=== PATIENT | female | born 1940 | race Caucasian/White ===

== ENCOUNTER 2024-02-24 12:26 | Emergency (ER) | payer MEDICARE, SELFPAY ==
--- NOTE | ~2024-02-24 | CT_ITS ---
EXAMINATION: CT brain wo con DATE: 02/24/2024 14:17 INDICATION: Dizziness. TECHNIQUE: Computed tomography (CT) of the head was performed without intravenous contrast. The mA wa s adjusted according to patient size. Iterative reconstruction technique was employed. The dose-lengt h product was 605.33 mGy-cm. COMPARISON: None FINDINGS: There are scattered areas of low attenuation in the cerebral white matter. There is no intr acranial hemorrhage, acute infarction, or abnormal intracranial mass lesion. The ventricles are nuha l in size. There are likely changes of ocular lens replacement surgeries. The paranasal sinuses are c lear. The mastoid air cells are normal. IMPRESSION: 1. Extensive nonspecific cerebral white matter disease, which likely represents chronic small vessel ischemic disease. Reviewed, dictated and finalized at location A.
--- NOTE | ~2024-02-24 | XR_ITS ---
EXAMINATION: XR chest 2V DATE: 02/24/2024 14:22 INDICATION: Chest discomfort. Hypertension. TECHNIQUE: Frontal and lateral views of the chest were obtained. COMPARISON: None. FINDINGS: There is no pneumonia, pleural effusion, or pneumothorax. The heart is normal. There is mil d chronic anterior wedging of multiple midthoracic vertebral bodies. IMPRESSION: 1. No acute cardiopulmonary disease. Reviewed, dictated and finalized at location A.
[2024-02-24 12:27] VITALS: BP 158/93; PULSE 97; RESP 18; TEMP 36.6; O2SAT 97
--- NOTE | 2024-02-24 13:55 | ECG_ITS ---
Test Date: 2024-02-24 14:03:47 Measurements Intervals [place] Rate: 88 P: 76 VA: 138 QRS: 55 QRSD: 84 T: 62 QT: 356 QTc: 432 Interpretive Statements SINUS RHYTHM POSSIBLE LEFT ATRIAL ENLARGEMENT [-0.1mV P WAVE IN V1/V2] No previous ECG available for comparison Electronically Signed On 02-24-2024 14:42:34 CDT by Ayaka Sandhu M.D.
[2024-02-24 14:00] VITALS: BP 188/79; PULSE 87; RESP 18; O2SAT 98
--- NOTE | 2024-02-24 14:03 | ED.RECABL ---
HPI - Recheck/Abnormal Lab/Rx General Chief Complaint: Recheck/Abnormal Lab/Rx Stated Complaint: high BP Time Seen by Provider: 02/24/24 14:00 Focused HPI: Mich is an 83-year-old female patient presenting to the ER today with complaints of high blood pressure, intermittent dizziness, blurry vision, headache, and tingling in her chest. Was sent here from Dr. Cavanaugh is office. Dr. Cavanaugh is office reported that her blood pressures have been systolic 240s over diastolic 110s. She takes lisinopril metoprolol. Dr. Sahu was concern for hypertension urgency/emergency. General: Well-developed, well nourished, in no apparent distress, wears glasses Head: Normocephalic, atraumatic. Cardio: Regular rate and rhythm, s1 and s2 normal, no murmur appreciated. Resp: Clear to auscultation bilaterally, no rhonchi, rales, wheezing or rubs. Extremities: No deformity, no edema, no cyanosis, capillary refill less than 2 seconds, peripheral pulses palpable and strong. Integumentary: [place], warm, and dry, intact without lesion, no rashes. Patient screened in triage and initial orders placed. Additional care and disposition to be based upon diagnostic testing and treatment. Source: patient Mode of arrival: ambulatory Limitations: no limitations Related Data Home Medications Medication Instructions Recorded Confirmed lisinopril 20 mg tablet 20 mg PO BID 02/24/24 02/24/24 metoprolol succinate 25 mg 25 mg PO DAILY 02/24/24 02/24/24 tablet,extended release 24 hr Allergies Allergy/AdvReac Type Severity Reaction Status Date / Time No Known Allergies Allergy Verified 02/24/24 14:00 [facility], [facility] Past Medical History Medical History GERD (gastroesophageal reflux disease) HTN (hypertension), benign Family History Family History Mother Cancer Depression Heart valve problem Cerebrovascular accident Thyroid disorder Father Heart problem Sibling Alcoholism Social History Social History Social History: caffeine -coffee Tobacco type: cigarettes Alcohol use details: occasionally Substance use type: does not use Comments At the time of my signature, I reviewed and agree with the nursing past medical, surgical, social, and family history. There is no relevant family history pertinent to the patient complaint. Course Course Emergency Course: Portions of this record may have been created with voice recognition software. Vital Signs Vital signs: Vital Signs Temperature 36.6 C 02/24/24 12:27 Pulse Rate 97 02/24/24 12:27 Respiratory Rate 18 02/24/24 12:27 Blood Pressure 158/93 H 02/24/24 12:27 Pulse Oximetry 97 02/24/24 12:27 Oxygen Delivery Room Air 02/24/24 12:27 Temperature 36.6 C 02/24/24 12:27 Pulse Rate 85 02/24/24 16:53 Respiratory Rate 17 02/24/24 16:53 Blood Pressure 221/88 H 02/24/24 16:53 Pulse Oximetry 97 02/24/24 16:53 Oxygen Delivery Room Air 02/24/24 12:27 Vital signs reviewed MDM - Recheck/Abnormal Lab/Rx Lab Data 02/24/24 14:09 02/24/24 14:09 Labs: Lab Results 02/24/24 02/24/24 02/24/24 Range/Units 14:09 16:44 17:15 WBC 6.3 (4.5-10.0) K/mm3 RBC 5.00 (4.2-5.4) M/mm3 Hgb 15.5 H (12.0-15.0) g/dL Hct 47.2 H (37.0-47.0) % MCV 94.4 (80-100) fl MCH 31.0 (26-34) pg MCHC 32.8 (32-36) g/dl RDW 12.5 (11.5-14.5) % Plt Count 213 (150-375) k/mm3 MPV 9.6 (7.4-10.4) fl Immature Gran % (Auto) 0.2 (0-0.5) % Neut % (Auto) 62.6 (45.5-73.1) % Lymph % (Auto) 29.0 (18.3-44.2) % [place] % (Auto) 6.3 (2.6-8.5) % Eos % (Auto) 1.1 (0-4.4) % Baso % (Auto) 0.8 (0.2-1.2) % Lymph # (Auto) 1.84 (0.9-3.2) K/mm3 [place] # (Auto) 0.4 (0.1-0.6) K/mm3 Eos # (Auto) 0.1 (0-0.3) K/mm3 Baso # (Auto) 0.
[2024-02-24 14:24] LABS: Basophils Absolute Auto 0.1 K/mm3 (0.0-0.1); Basophils Percent Auto 0.8 % (0.2-1.2); Eosinophils Absolute Auto 0.1 K/mm3 (0-0.3); Eosinophils Percent Auto 1.1 % (0-4.4); Hematocrit 47.2 % (37.0-47.0); Hemoglobin 15.5 g/dL (12.0-15.0); Immature Granulocyte Absolute 0.01 K/mm3 (0.00-0.031); Immature Granulocyte Percent A 0.2 % (0-0.5); Lymphocytes Absolute Auto 1.84 K/mm3 (0.9-3.2); Mean Corpuscular HGB Conc 32.8 g/dl (32-36); Mean Corpuscular Volume 94.4 fl (80-100); Mean Platelet Volume 9.6 fl (7.4-10.4); Monocytes Absolute Auto 0.4 K/mm3 (0.1-0.6); Monocytes Percent Auto 6.3 % (2.6-8.5); Neutrophils Percent Auto 62.6 % (45.5-73.1); Platelet Count Result 213 k/mm3 (150-375); Red Cell Distribution Width 12.5 % (11.5-14.5); White Blood Count 6.3 K/mm3 (4.5-10.0)
[2024-02-24 14:29] LABS: Alanine Aminotransferase 16 U/L (6-35); Albumin Level 4.4 g/dL (3.5-5.1); Alkaline Phosphatase 76 U/L (38-126); Anion Gap 8 mmol/L (4-12); Aspartate Amino Transferase 26 U/L (14-36); Bilirubin,Total 0.7 mg/dL (0.2-1.3); Blood Urea Nitrogen 12 mg/dL (7-17); Calcium 9.2 mg/dL (8.4-10.2); Carbon Dioxide 32 mmol/L (22-30); Chloride 92 mmol/L (98-107); Estimated CRCL calculation 50 ml/min; Estimated Glomerular Filt Rate > 60; Glucose 133 mg/dL (65-110); Potassium 3.9 mmol/L (3.4-5.0); Sodium 132 mmol/L (137-145)
[2024-02-24 14:41] LABS: Troponin I < 0.012 ng/mL (0.000-0.034)
[2024-02-24 14:45] LABS: INR 0.9; Prothrombin Time 12.5 Seconds (11.1-14.7)
[2024-02-24 14:47] LABS: Partial Thromboplastin Time 27.2 Seconds (22.3-36.8)
[2024-02-24 16:02] VITALS: BP 214/104; PULSE 82; RESP 20; O2SAT 100
--- NOTE | 2024-02-24 16:19 | ED.GENADULT ---
HPI - General Adult General Chief complaint: Recheck/Abnormal Lab/Rx Stated complaint: high BP Time Seen by Provider: 02/24/24 14:00 Source: patient Mode of arrival: ambulatory Limitations: no limitations History of Present Illness HPI narrative: This is a pleasant 83-year-old female presenting from her primary care office with elevated blood pressures. Patient has not checked her blood pressure in over 1 year. When she went to establish primary care today they found her blood pressure to be elevated and 220 over 90s. She was then sent to the ED for possible hypertensive emergency. Patient is very well appearing with no complaints. No chest pain difficulty breathing or neurologic deficits. Related Data Home Medications Medication Instructions Recorded Confirmed lisinopril 20 mg tablet 20 mg PO BID 02/24/24 02/24/24 metoprolol succinate 25 mg 25 mg PO DAILY 02/24/24 02/24/24 tablet,extended release 24 hr Allergies Allergy/AdvReac Type Severity Reaction Status Date / Time No Known Allergies Allergy Verified 02/24/24 14:00 [facility] Past Medical History Medical History GERD (gastroesophageal reflux disease) HTN (hypertension), benign Family History Family History Mother Cancer Depression Heart valve problem Cerebrovascular accident Thyroid disorder Father Heart problem Sibling Alcoholism Social History Social History Social History: caffeine -coffee Tobacco type: cigarettes Alcohol use details: occasionally Substance use type: does not use Exam Narrative: APPEARANCE: No apparent distress. Head: atraumatic. EYES: EOMI, NOSE: Atraumatic NECK: Trachea midline RESPIRATORY: No increased rate of breathing clear to auscultation CARDIOVASCULAR: RRR, no peripheral edema ABDOMINAL: Non-distended soft nontender MUSCULOSKELETAl: No obvious deformities NEURO: Alert. Cranial nerves 2-12 grossly intact. Sensation light touch, motor function cerebellar function intact for 4 extremities. Gait exam was normal. SKIN:: Warm, dry. Normal color PSYCHIATRIC: Normal affect Course Vital Signs Vital signs: Vital Signs Temperature 97.9 F 02/24/24 12:27 Pulse Rate 97 02/24/24 12:27 Respiratory Rate 18 02/24/24 12:27 Blood Pressure 158/93 H 02/24/24 12:27 Pulse Oximetry 97 02/24/24 12:27 Oxygen Delivery Room Air 02/24/24 12:27 Temperature 97.9 F 02/24/24 12:27 Pulse Rate 79 02/24/24 16:27 Respiratory Rate 19 02/24/24 16:27 Blood Pressure 220/97 H 02/24/24 16:27 Pulse Oximetry 98 02/24/24 16:27 Oxygen Delivery Room Air 02/24/24 12:27 Medical Decision Making [facility] Narrative Medical decision making narrative: -Course: 83-year-old female presenting with elevated blood pressures. Patient has asymptomatic hypertension. No chest pain no difficulty breathing no neurologic deficits. Patient is very well-appearing and in good spirits. Patient given a dose of her home meds. Patient instructed to increase her doses of home hypertension meds and follow-up with her primary care physician. Given return precautions. -DDX includes but is not limited to: Hypertensive emergency, asymptomatic hypertension -Co-morbidities complicating care: Hypertension -Independent interpretation of studies: Labs ordered were yet nursing triage protocols Labs reviewed and within normal limits. Chest x-ray normal. CT head showed chronic small-vessel disease. Independent EKG interpretation: Rhythm [sinus], Rate [888], [place] -[normal], SC -[normal], QRS [narrow], QTC [normal], T waves -[negative for concerning inversions], ST Segments - [Negative for concerning elevations] Final interpretations: [Normal Sinus Rhythm] -Interventions: Lisinopril 20 mg, metoprolol succinate 25 mg -Shared decision making / Disposition: Discharge
[2024-02-24 16:27] VITALS: BP 220/97; PULSE 79; RESP 19; O2SAT 98
[2024-02-24 16:52] VITALS: PULSE 72
[2024-02-24] MEDS: lisinopriL 20 MG TABLET PO (16:52)
[2024-02-24] MEDS: METOPROLOL SUCCINATE EXT REL 25 MG TABCR PO (16:52)
[2024-02-24 16:53] VITALS: BP 221/88; PULSE 85; RESP 17; O2SAT 97
[2024-02-24 16:54] LABS: Add Urine Microscopic? YES; Appearance Urine Clear (Clear); Bacteria Urine None Seen /hpf; Bilirubin Urine Negative (Negative); Blood Urine Negative (Negative); Color Urine Yellow (Yellow); Glucose Urine UA Negative (Negative); Ketones Urine Negative (Negative); Leukocyte Esterase Ur Trace LEU/UL (Negative); Nitrate Urine Negative (Negative); Non Pathogenic Casts 0-2; Protein Urine Negative (Negative); RBC Urine 0-2 /hpf (0-2); Specific Grav Ur 1.004 (1.001-1.035); Squamous Epithelial Cell Urine None Seen /hpf (Few); Urobilinogen Urine 0.2 mg/dL (<2.0); WBC Urine 0-5 /hpf (0-3)
== END 2024-02-24 17:08 | disposition home or self-care (01) ==
PROVIDERS: Nurse Practitioner Family; Emergency Provider Emergency Medicine; PCP Emergency Medicine
DX: I10 Essential (primary) hypertension (principal); K21.9 Gastro-esophageal reflux disease without esophagitis; Z79.899 Other long term (current) drug therapy; R94.31 Abnormal electrocardiogram [ECG] [EKG]; R90.82 White matter disease, unspecified
CPT/HCPCS: 36415; 70450; 71046; 80053; 81001; 84484; 85025; 85610; 85730; 93005; 99284; A9270